=== PATIENT | female | born 1975 ===

== ENCOUNTER 2017-01-23 23:00 | Emergency (ER) | payer SELFPAY ==
[~2017-01-23] VITALS: Ht 160 cm; Wt 50.0 kg
[~2017-01-23 23:00] MED LIST: CEPH500C3 PO
[2017-01-23 23:02] VITALS: BP 140/81; PULSE 90; TEMP 98.3; O2SAT 100
[2017-01-24 00:05] VITALS: BP 136/84; PULSE 97; RESP 17; O2SAT 100
[2017-01-24] MEDS ORDERED: SODIUM CHLOR 0.9% 1000 ML INJ 1,000 ML IV ONE (00:27)
[2017-01-24] MEDS ORDERED: SODIUM CHLORIDE 0.9% FLUSH 10 ML FLUSH IVF PRN (00:30)
[2017-01-24] MEDS ORDERED: ONDANSETRON HCL 4 MG/2 ML VIAL IVP ONE (00:30)
[2017-01-24 01:37] LABS: BLOOD, URINE NEG (NEG); GLUCOSE,URINE NEG (NEG); KETONE, URINE NEG (NEG); NITRITE,URINE NEG (NEG); PH, URINE 6.5 (5.0-8.5); SQUAMOUS EPITHELIAL CELL URINE <1 /hpf (0-5); URINE COLOR LIGHT-YELLOW (YELLW/STRAW)
[2017-01-24 01:38] LABS: COMMENT (UR) CULT NOT INDICATED; CULTURE IF INDICATED CULT NOT INDICATED
[2017-01-24 01:49] LABS: AUTOMATED NEUTROPHIL # 7.7 TH/MM3 (1.8-7.7); BASOPHIL # 0.1 TH/MM3 (0-0.2); BASOPHIL % 0.6 % (0.0-2.0); EOSINOPHIL # 0.3 TH/MM3 (0-0.4); EOSINOPHIL % 2.7 % (0.0-4.0); HEMATOCRIT 28.1 % (35.0-46.0); HEMO FLAGS DIFF FINAL; LYMPHOCYTE # 1.4 TH/MM3 (1.0-4.8); MEAN CELL VOLUME 69.3 FL (80.0-100.0); MEAN CORPUSCULAR HEMOGLOBIN 21.5 PG (27.0-34.0); MONO % 5.7 % (0.0-8.0); PLATELET COUNT 356 TH/MM3 (150-450); RED BLOOD COUNT 4.06 MIL/MM3 (4.00-5.30); RED CELL DISTRIBUTION WIDTH 17.8 % (11.6-17.2)
[2017-01-24 02:09] LABS: BICARBONATE 26.9 MEQ/L (21.0-32.0); POTASSIUM 3.6 MEQ/L (3.5-5.1)
[2017-01-24] MEDS ORDERED: ZOFR4TAB3 SL (03:05)
--- NOTE | 2017-01-24 03:07 | PD ---
HPI Chief Complaint: Headache Time Seen by Provider: 00:27 Travel History International Travel<30 days: No Contact w/Intl Traveler<30days: No Traveled to known affect area: No History of Present Illness HPI 41 year-old female reports that she has had poor oral intake with diarrhea and nausea times one week after eating out with her coworkers on . Patient reports all presents to what to the same restaurant have been ill. Patient's had some subjective fever but no chills. Patient has had poor oral intake as she is afraid that if she takes oral hydration she will vomit but has had several episodes of diarrhea. Patient denies any bloody stools or melanotic stools. Patient has noted decreased urine output. Patient complains of generalized weakness dizziness especially upon standing and walking as well as headache. Patient states that she is alignment taking small amounts of Benadryl. Due to feeling very dehydrated decided to come to the emergency room for evaluation. No abdominal pain. No injury. PFSH Past Medical History Narrative Medical Negative past medical history; ; no tobacco use; no skin is reviewed Medical History: Denies Significant Hx ?: Not LMP: 01/20/17 : 1 Para: 1 Past Surgical History Surgical History: No Previous Surgery Section: Yes Social History Alcohol Use: No Tobacco Use: No Substance Use: No Allergies-Medications (Allergen,Severity, Reaction): Coded Allergies: No Known Allergies (Unverified , 01/23/17) Reported Meds & Prescriptions Reported Meds & Active Scripts Active Zofran Odt (Ondansetron Odt) 4 Mg Tab 4 Mg SL Q6HR PRN Review of Systems Except as stated in HPI: all other systems reviewed are Neg Physical Exam Narrative GENERAL: Well-developed well-nourished female in no acute distress no respiratory distress SKIN: Warm and dry. HEAD: Normocephalic. EYES: No scleral icterus. No injection or drainage. NECK: Supple, trachea midline. No JVD or lymphadenopathy. CARDIOVASCULAR: Regular rate and rhythm without murmurs, gallops, or rubs. RESPIRATORY: Breath sounds equal bilaterally. No accessory muscle use. GASTROINTESTINAL: Abdomen soft, non-tender, nondistended. Rectal exam: Normal sphincter tone scant brown stool no blood on glove MUSCULOSKELETAL: No cyanosis, or edema. BACK: Nontender without obvious deformity. No CVA tenderness. Data Data Last Documented VS Vital Signs Date Time Temp Pulse Resp B/P Pulse Ox O2 Delivery O2 Flow Rate FiO2 01/24/17 03:21 92 16 116/69 100 01/24/17 00:05 Room Air 01/23/17 23:02 98.3 Orders Complete Blood Count With Diff (01/24/17 00:27) Basic Metabolic Panel (Bmp) (01/24/17 00:27) Urinalysis - C+S If Indicated (01/24/17 00:27) Iv Access Insert/Monitor (01/24/17 00:27) Ecg Monitoring (01/24/17 00:) Oximetry (01/24/17 00:27) Ondansetron Inj (Zofran Inj) (01/24/17 00:30) Sodium Chlor 0.9% 1000 Ml Inj (Ns 1000 M (01/24/17 00:27) Sodium Chloride 0.9% Flush (Ns Flush) (01/24/17 00:30) Ed Urine Pregnancytest Poc (01/24/17 00:27) Labs Laboratory Tests Test 01/24/17 01/24/17 00:30 01:15 White Blood Count 10.0 TH/MM3 Red Blood Count 4.06 MIL/MM3 Hemoglobin 8.7 GM/DL Hematocrit 28.1 % Mean Corpuscular Volume 69.3 FL Mean Corpuscular Hemoglobin 21.5 PG Mean Corpuscular Hemoglobin 31.0 % Concent Red Cell Distribution Width 17.8 % Platelet Count 356 TH/MM3 Mean Platelet Volume 9.1 FL Neutrophils (%) (Auto) 77.0 % Lymphocytes (%) (Auto) 14.0 % Monocytes (%) (Auto) 5.7 % Eosinophils (%) (Auto) 2.7 % Basophils (%) (Auto) 0.6 % Neutrophils # (Auto) 7.7 TH/MM3 Lymphocytes # (Auto) 1.4 TH/MM3 Monocytes # (Auto) 0.6 TH/MM3 Eosinophils # (Auto) 0.3 TH/MM3 Basophils # (Auto) 0.1 TH/MM3 CBC Comment DIFF FINAL Differential Comment Sodium Level 140 MEQ/L Potassium Level 3.6 MEQ/L Chloride Level 107 MEQ/L Carbon Dioxide Level 26.9 MEQ/L Anion Gap 6 MEQ/L Blood Urea Nitrogen 9 MG/DL Creatinine 0.87 MG/DL Estimat Glomerular Filtration 71 ML/MIN Rate Random Glucose 104 MG/DL Calcium Level 8.6 MG/DL Urine Color LIGHT-YELLOW Urine Turbidity CLEAR Urine pH 6.5 Urine Specific [place] 1.004 Urine Protein NEG mg/dL Urine Glucose (UA) NEG mg/dL Urine Ketones NEG mg/dL Urine Occult Blood NEG Urine Nitrite NEG Urine Bilirubin NEG Urine Urobilinogen LESS THAN 2.0 MG/DL Urine Leukocyte Esterase NEG Urine WBC LESS THAN 1 /hpf Urine Squamous Epithelial <1 /hpf Cells Microscopic Urinalysis Comment CULT NOT INDICATED MDM Medical Decision Making Medical Screen Exam Complete: Yes Emergency Medical Condition: Yes Medical Record Reviewed: Yes Interpretation(s) CBC & BMP Diagram 01/24/17 00:30 Vital Signs Date Time Temp Pulse Resp B/P Pulse Ox O2 Delivery O2 Flow Rate FiO2 01/24/17 00:05 97 17 136/84 100 Room Air 01/23/17 23:58 17 99 Room Air 01/23/17 23:02 98.3 90 140/81 100 UA: wnl poc hcg: negative Differential Diagnosis Food borne illness, gastroenteritis, diarrheal illness, dehydration, electrolyte disturbance Narrative Course It is 3 AM patient feels clinically improved rectal exam is Hemoccult negative: Abdomen soft nontender taking oral hydration well; patient stable for outpatient management and follow-up with her primary care provider. Patient provided prescription for Zofran to take as needed for nausea and/or vomiting. [facility] Point of Care Internal Pos. & Neg. Controls: Passed Fecal Specimen Occult Blood: Negative Diagnosis Primary Impression: Gastroenteritis Additional Impression: Anemia Referrals: Primary Care Physician call for appointment Patient Instructions: General Instructions Additional Instructions: Follow clear liquid diet for next 12-24 hours advance as tolerated to bland/ Saw diet then regular diet avoiding fried and fatty foods Takes Zofran as prescribed as needed for nausea and/or vomiting Monitor temperature with thermometer and take acetaminophen/Tylenol as often as every 4 hours as needed for fever 100.4F or greater or for minor discomfort No work times one day Follow-up with primary care provider call office on Thursday Return to the emergency department for any concerns or change in condition Med/Other Pt SpecificInfo: Prescription(s) given Scripts Ondansetron Odt (Zofran Odt)4 Mg Tab4 Mg SL Q6HR PRN (Nausea/Vomiting) #10 TAB Ref 0 Prov:Leah Lechuga MD 01/24/17 Disposition: 01 DISCHARGE HOME Condition: Stable Leah Lechuga MD Jan 24, 2017 03:07
[2017-01-24 03:21] VITALS: BP 116/69
== END 2017-01-24 03:22 | disposition home or self-care (01) ==
LOC: NEPC 23:00
DX: K52.9 Noninfective gastroenteritis and colitis, unspecified (principal); R53.1 Weakness; R42 Dizziness and giddiness; D64.9 Anemia, unspecified
CPT/HCPCS: 80048; 81001; 84703; 85025; 96374; 99284; J2405; J7030